=== PATIENT | male | born 1980 | race Caucasian/White ===

== ENCOUNTER → 2020-10-06 09:06 | Outpatient (BNVA) | payer OTHER, SELFPAY | PROVIDERS: PCP Internal Medicine; Visit Provider Orthopaedic Surgery | DX: S43.202A Unspecified subluxation of left sternoclavicular joint, initial encounter (principal); S46.812A Strain of other muscles, fascia and tendons at shoulder and upper arm level, left arm, initial encounter | CPT/HCPCS: 99202 ==

== ENCOUNTER 2020-12-30 18:58 | Emergency (ER) | payer OTHER, SELFPAY ==
[2020-12-30 19:02] VITALS: BP 150/93; PULSE 71; RESP 18; TEMP 36.8; O2SAT 96; BMI 34.2
--- NOTE | 2020-12-30 19:23 | ED.ANIMALBIT ---
HPI - Animal Bite General Chief Complaint: Animal Bite Stated Complaint: tick bite Time Seen by Provider: 12/30/20 19:02 Source: patient Mode of arrival: ambulatory Limitations: no limitations History of Present Illness MD complaint: other (tick bite) Onset (ago): day(s) (1) Animal: other (tick) Mechanism: bite Location: back Context: unprovoked Associated symptoms: other (couldn't remove full tick) Related Data Previous Rx's Medication Instructions Recorded lidocaine 5 % topical patch 1 patch TOPICAL DAILY PRN 15 Days 09/29/20 #15 ea naproxen 500 mg tablet 500 mg PO BID #60 tab 10/06/20 albuterol sulfate 90 mcg/actuation 2 puff INHALATION Q4H PRN #8.5 g 10/12/20 aerosol inhaler fluticasone furoate 200 2 inh INHALATION DAILY 30 Days #30 10/12/20 mcg/actuation blister powder for ea inhalation lisinopril 5 mg tablet 5 mg PO DAILY #30 tab 10/18/20 budesonide-formoterol HFA 160 2 puff INHALATION BID #10.2 g 11/10/20 mcg-4.5 mcg/actuation aerosol inhaler doxycycline hyclate 100 mg PO BID 10 Days #20 cap 12/30/20 Allergies Allergy/AdvReac Type Severity Reaction Status Date / Time Sulfa (Sulfonamide Allergy Severe ANGIOEDEMA, Verified 12/30/20 19:16 Antibiotics) Tongue [SULFA (SULFONAMIDE Swelling, ANTIBIOTICS)] swelling Review of Systems Review of Systems: Constitutional : No Fever, No Chills, Cardiovascular : No Chest Pain, No SOB Respiratory : No Dyspnea Gastrointestinal : No abdominal pain Musculoskeletal : No Joint Swelling Skin : No rash, pos insect bite Neuro : No Weakness, No Numbness Psych : No SI/HI PMFSH Past Medical History Medical History Adjustment disorder Anxiety and depression Asthma Erectile dysfunction Hypertension Nasal polyp Obesity (BMI 30-39.9) Obstructive sleep apnea Surgical History H/O umbilical hernia repair H/O vasectomy History of lumbar laminectomy History of orchiectomy Previous back surgery Social History Social History Alcohol intake: current Alcohol intake frequency: a few times a month Smoking Status: Never smoker Advance Directives: No Advance Directives Information Provided: Yes Current occupational status: employed 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 Oriented X3. No acute distress. Eyes: Pupils equal, round and reactive to light. ENT: Pharynx normal. Neck: Normal inspection. Neck supple. CVS: Pulses normal. Respiratory: No respiratory distress. Abdomen: Soft Back: tick head with red raised area not a bulls eye mid thoracic back no surrounding edema Skin: Skin warm and dry. Normal skin color. Normal skin turgor. Extremities: No lower extremity edema. No calf ttp Neuro: Oriented X 3. No motor deficit. No sensory deficit. Procedures Foreign Body Removal Time Out Performed: yes Site: other (back) Description of foreign body: insect Sedation/Analgesia: none Technique: removal with forceps Confirmed by:: direct visualization Complications: none Post-procedure exam: awake, alert MDM - Animal Bite MDM Narrative Medical decision making narrative: 40 yo male not diabetic here with tick bite on back, still need to remove head, red raised area no bulls eye possible local irritation vs start of cellulitis from picking at home - start on doxy x 10 days remove tick head Discharge Plan Discharge Clinical Impression: Tick bite Qualifiers: Encounter type: initial encounter Qualified Code(s): W57.XXXA - Bitten or stung by nonvenomous insect and other nonvenomous arthropods, initial encounter Patient Disposition: Home, Self-Care Instructions: Tick Bite (ED) Additional Instructions: return to ED for any worsening symptoms or concerns monitor for signs of redness, increased swelling, yellow drainage Prescriptions: New doxycycline hyclate 100 mg capsule 100 mg PO BID 10 Days Qty: 20 RF: 0 No Action lidocaine 5 % adhesive patch,medicated 1 patch topical DAILY PRN (Reason: pain (scale score 7-10)) 15 Days Qty: 15 RF: 5 fluticasone furoate 200 mcg/actuation blister with device 2 inh inhalation DAILY 30 Days Qty: 30 RF: 5 albuterol sulfate 90 mcg/actuation HFA aerosol inhaler 2 puff inhalation Q4H PRN (Reason: shortness of breath or wheezing) Qty: 8.5 RF: 0 lisinopril 5 mg tablet 5 mg PO DAILY Qty: 30 RF: 3 budesonide-formoterol [Symbicort] 160-4.5 mcg/actuation HFA aerosol inhaler 2 puff inhalation BID Qty: 10.2 RF: 11 naproxen [Naprosyn] 500 mg tablet 500 mg PO BID Qty: 60 RF: 2
== END 2020-12-30 19:57 | disposition home or self-care (01) ==
LOC: HO.ED 19:36
PROVIDERS: Emergency Provider Emergency Medicine; PCP Internal Medicine
DX: T63.481A Toxic effect of venom of other arthropod, accidental (unintentional), initial encounter (principal); M54.5 Low back pain; Y92.9 Unspecified place or not applicable; Z79.899 Other long term (current) drug therapy
CPT/HCPCS: 99284

== ENCOUNTER 2021-08-12 21:41 | Emergency (ER) | payer OTHER, SELFPAY ==
[2021-08-12 22:44] VITALS: BP 153/101; PULSE 94; RESP 18; TEMP 36.8; O2SAT 96; BMI 37.6
[2021-08-12] MEDS: diphenhydrAMINE HCL 50 MG/ML VIAL IVPUSH (23:26)
[2021-08-12] MEDS: Famotidine/PF 20 MG/2 ML VIAL IVPUSH (23:27)
--- NOTE | 2021-08-12 23:33 | PC.NURSE ---
IV established, pt medicated per MAR. Pt refusing Solumedrol, pt states Steroids make me crazy.
[2021-08-12 23:46] LABS: COVID-19 Test Positive (Negative)
--- NOTE | 2021-08-12 23:53 | ED_ITS ---
HPI - General Adult General Chief complaint: General Medical Stated complaint: allergic reaction Time Seen by Provider: 08/12/21 23:11 Source: patient Mode of arrival: ambulatory Limitations: no limitations History of Present Illness HPI narrative: 47-year-old male presents to ED for allergic reaction. Patient presents to the ED for swelling of lower lip and itchy sensation on body that began around 9:00pm. Patient known allergies of strawberries and sulfa and states to his knowledge he has not been exposed to any of these ingredients. Patient denies taking any high blood pressure medication. Patient denies any tongue swelling or shortness of breath. Patient states he speaking in clear sentences. Patient denies any drooling or change in voice. Patient states also he would like to be tested for COVID. Patient states he was exposed to a colleague who was positive for COVID. Patient denies any COVID symptoms. Patient denies any fever, chills, chest pain, shortness of breath, bodyaches, diarrhea, abdominal pain, or coughing. Related Data Previous Rx's Medication Instructions Recorded lidocaine 5 % topical patch 1 patch TOPICAL DAILY PRN 15 Days 09/29/20 #15 ea naproxen 500 mg tablet (Naprosyn) 500 mg PO BID #60 tab 10/06/20 doxycycline hyclate 100 mg capsule 100 mg PO BID 10 Days #20 cap 12/30/20 lisinopril 5 mg tablet 5 mg PO DAILY 90 Days #90 tab 01/10/21 fluticasone furoate 200 2 inh INHALATION DAILY 30 Days #30 01/13/21 mcg/actuation blister powder for ea inhalation fluticasone 250 mcg-salmeterol 50 1 inh INHALATION BID 90 Days #3 ea 01/17/21 mcg/dose blistr powdr for inhalation (Advair Diskus) albuterol sulfate 90 mcg/actuation 2 puff INHALATION Q4H PRN #8.5 g 06/25/21 aerosol inhaler diphenhydramine HCl 25 mg capsule 25 mg PO TID PRN 10 Days #30 cap 08/13/21 (Benadryl) epinephrine 0.3 mg/0.3 mL 0.3 mg (0.3 mL) IM Q10M PRN #2 ea 08/13/21 injection, auto-injector famotidine 20 mg tablet (Pepcid) 20 mg PO BID 10 Days #20 tab 08/13/21 prednisone 20 mg tablet 60 mg PO DAILY 5 Days #15 tab 08/13/21 Allergies Allergy/AdvReac Type Severity Reaction Status Date / Time Sulfa (Sulfonamide Allergy Severe ANGIOEDEMA, Verified 08/12/21 22:44 Antibiotics) Tongue [SULFA (SULFONAMIDE Swelling, ANTIBIOTICS)] swelling Review of Systems Review of Systems: Yes all other systems are reviewed and are negative Constitutional: Constitutional: Reports as per HPI and Reports no additional constitutional complaints Eyes: Eyes: Reports as per HPI and Reports no additional eye complaints ENT: Reports system reviewed and no additional complaints, except as documented and Reports as per HPI Comments: Swelling of lower lip Cardiovascular: Cardiovascular: Reports as per HPI and Reports no additional cardiovascular complaints Respiratory: Respiratory: Reports as per HPI and Reports no additional respiratory complaints Gastrointestinal: Gastrointestinal: Reports as per HPI and Reports no additional gastrointestinal complaints Genitourinary: Genitourinary: Reports no additional male genitourinary complaints and Reports as per HPI Musculoskeletal: Musculoskeletal: Reports no additional musculoskeletal complaints and Reports as per HPI Integumentary/Breasts: Skin/Breast: Reports system reviewed and no additional complaints, except as docu and Reports as per HPI Comments: Itchiness Neurologic: Reports system reviewed and no additional complaints, except as do cumented and Reports as per HPI Psychiatric: Psychiatric: Reports no additional psychiatric complaints and Reports as per HPI [facility] Past Medical History Medical History Adjustment disorder Anxiety and depression Asthma Erectile dysfunction Hypertension Nasal polyp Obesity (BMI 30-39.9) Obstructive sleep apnea Surgical History H/O umbilical hernia repair H/O vasectomy History of lumbar laminectomy History of orchiectomy Previous back surgery Social History Social History Alcohol intake: current Alcohol intake frequency: a few times a month Advance Directives: No Advance Directives Information Provided: No Current occupational status: employed 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 Physical Exam Vital Signs: Vital Signs: Last Vital Signs Temp 98.3 F 08/12/21 22:44 Pulse 92 08/13/21 00:41 Resp 18 08/13/21 00:41 BP 145/98 H 08/13/21 00:41 Pulse Ox 96 08/13/21 00:41 BMI result Body Mass Index 37.6 Const: General: cooperative, healthy appearing, comfortable, no acute distress, well developed, alert, awake and Physically active Orientation/consciousness: patient oriented x3 HENMT: Head: Yes normal to inspection, Yes No palpable skull fracture present, Yes normocephalic, Yes atraumatic, No abrasion, No Acrocyanosis present, No Gonzalez's sign, No contusion, No cranial bruits, No hematoma, No laceration, No occipital foramen tenderness, No palpable skull fracture, No raccoon eyes, No scalp lesion, No scalp tenderness, No Temporal artery tenderness present and No periorbital ecchymosis Mouth/tongue images: 1. Positive for lower lip swelling. Negative for tongue swelling. Upper lip normal. Uvula is midline. Negative for drooling. Uvula is not swollen Eyes: General: appearance normal, both eyes and all related structures Pupils: Equal, round and reactive pupils present Neck: Neck: Yes normal visual inspection, Yes full ROM, Yes no lym phadenopathy, Yes no meningeal signs, Yes trachea midline, Yes supple, No anterior neck swelling and No tender Chest: Chest palpation & inspection: normal inspection of the chest and normal palpation of entire chest wall Resp: Effort & Inspection: normal respiratory effort and able to speak in complete sentences Auscultation: clear to auscultation bilaterally Cardio: Jugular venous distension: no JVD Heart sounds: S1 normal heart sound present and S2 normal heart sound present GI: Inspection: Yes normal to inspection and No abdominal wall ecchymosis Palpation (GI): Soft to palpation, not firm, nontender, no guarding and not rigid : General: No CVA tenderness and Yes no CVA tenderness Back/Spine/Pelvis: Back: no CVA tenderness, No CVA tenderness and No back tenderness Skin: General skin exam: no rashes or lesions noted and elasticity normal Neuro: General: patient oriented x3, gait normal, tone normal, moves all extremities, Normal light touch and pain sensation, no meningeal signs, no focal motor deficits, CN's II-XI intact bilaterally and deep tendon reflexes 2+ bilat erally Cranial nerves: Yes CN's II-XII intact bilaterally, Yes Facial sen sation intact/muscles of mastication intact, Yes Intact sense of smell present, Yes Equal, round and reactive pupils present, Yes Bilaterally intact EOM present, Yes Nystagmus not present, Yes Normal facial strength present, Yes Midline tongue present and Yes Normal gag reflex present Extrem: General: Yes normal to inspection and Yes full ROM Psych: Appearance: grossly normal, well kempt and not disheveled Course Course Course Narrative: Presently no epinephrine indicating. Patient speaking in full sentences and lungs are clear. Only lower lip swollen. Will do Solu-Medrol, Benadryl, and Pepcid. Although patient does not have any COVID symptoms patient would like to be tested for COVID due to exposure to colleague was positive for COVID. Reevaluation(s) Reevaluation #1: Patient's lower lip swelling resolved. Patient's COVID test came back positive. Patient recommend self quarantine for 2 weeks. Patient will be discharged with steroids, Benadryl, Pepcid, EpiPen. Patient informed EpiPen should be used if he is having an anaphylactic reaction. Time: 01:28 Medical Decision Making [facility] Narrative Medical decision making narrative: Allergic reaction. COVID Lab Data Labs: Lab Results 08/12/21 Range/Units 23:32 COVID-19 ([facility]) Positive A (Negative) COVID-19 Clin Com See Note Discharge Plan Discharge Clinical Impression: Allergic reaction, COVID-19 Patient Disposition: Home, Self-Care Instructions: General Allergic Reaction (ED), COVID-19 (Coronavirus Disease 2019) (ED) Additional Instructions: Your positive for COVID. You will need to self quarantine for the next 14 days. You be discharged with allergy medication. Patient will be probably could rule. Return to the ED for any chest pain, shortness of breath, rash, swelling of lips, swelling of tongue, fever, chills, coughing up blood, leg swelling, calf pain, or any other concerning symptoms. Please follow-up with primary care provider. Prescriptions: New prednisone 20 mg tablet 60 mg PO DAILY 5 Days Qty: 15 RF: 0 diphenhydramine HCl [Benadryl] 25 mg capsule 25 mg PO TID PRN (Reason: allergic reaction) 10 Days Qty: 30 RF: 0 famotidine [Pepcid] 20 mg tablet 20 mg PO BID 10 Days Qty: 20 RF: 0 epinephrine 0.3 mg/0.3 mL auto-injector 0.3 mg IM Q10M PRN (Reason: anaphylaxis) Qty: 2 RF: 0 No Action lidocaine 5 % adhesive patch,medicated 1 patch topical DAILY PRN (Reason: pain (scale score 7-10)) 15 Days Qty: 15 RF: 5 lisinopril 5 mg tablet 5 mg PO DAILY 90 Days Qty: 90 RF: 2 fluticasone furoate 200 mcg/actuation blister with device 2 inh inhalation DAILY 30 Days Qty: 30 RF: 5 fluticasone propion-salmeterol [Advair Diskus] 250-50 mcg/dose blister with de vice 1 inh inhalation BID 90 Days Qty: 3 RF: 2 albuterol sulfate 90 mcg/actuation HFA aerosol inhaler 2 puff inhalation Q4H PRN (Reason: shortness of breath or wheezing) Qty: 8.5 RF: 0 doxycycline hyclate 100 mg capsule 100 mg PO BID 10 Days Qty: 20 RF: 0 naproxen [Naprosyn] 500 mg tablet 500 mg PO BID Qty: 60 RF: 2 Stand Alone Forms: Work/School Release Interventions: ED Discharge Assessment Last Done: 08/13/21 01:43 Discharge Date/Time: 08/13/21 01:44 Print Language: Serbian
[2021-08-13 00:41] VITALS: BP 145/98; PULSE 92; RESP 18; O2SAT 96
== END 2021-08-13 01:44 | disposition home or self-care (01) ==
PROVIDERS: Physician Assistant; Emergency Provider Student in an Organized Health Care Education/Training Program; PCP Internal Medicine
DX: U07.1 COVID-19 (principal); T78.40XA Allergy, unspecified, initial encounter; L29.9 Pruritus, unspecified; X58.XXXA Exposure to other specified factors, initial encounter
CPT/HCPCS: 36415; 87635; 96374; 96375; 99284; J1200

== ENCOUNTER 2022-01-07 08:38 | Outpatient (REF) | payer OTHER, SELFPAY ==
--- NOTE | ~2022-01-07 | XR_ITS ---
EXAMINATION: LEFT SHOULDER AND CLAVICLE X-RAY CLINICAL INFORMATION: Pain COMPARISON: Previous x-ray March 2020 TECHNIQUE: One view of the left clavicle and 3 views of the left shoulder FINDINGS: Bone alignment is normal. No fracture or dislocation is seen. The joint spaces are normal in soft tissues are normal. There is curvature of the upper thoracic spine to the left. XR/XR clavicle LT IMPRESSION: Normal left shoulder. Thoracic scoliosis.
--- NOTE | ~2022-01-07 | XR_ITS ---
EXAMINATION: LEFT SHOULDER AND CLAVICLE X-RAY CLINICAL INFORMATION: Pain COMPARISON: Previous x-ray March 2020 TECHNIQUE: One view of the left clavicle and 3 views of the left shoulder FINDINGS: Bone alignment is normal. No fracture or dislocation is seen. The joint spaces are normal in soft tissues are normal. There is curvature of the upper thoracic spine to the left. XR/XR shoulder LT min 2V IMPRESSION: Normal left shoulder. Thoracic scoliosis.
[2022-01-07 09:11] LABS: MANUAL DIFF FLAG NO
[2022-01-07 09:43] LABS: Basophils Absolute Auto 0.1 X10*3/uL (0.0-0.2); Eosinophils Absolute Auto 0.5 X10*3/uL (0.0-0.4); Eosinophils Percent Auto 7.9 % (0-4); Hematocrit 48.9 % (42.0-52.0); Imm Gran Abs Auto 0.02 X10*3/uL (0.00-0.03); Imm Gran Pct Auto 0.3 % (0.0-0.4); Lymphocytes Absolute Auto 2.1 X10*3/uL (1.2-4.9); Lymphocytes Percent Auto 35.2 % (20-40); Mean Corpuscular HGB Conc 34.8 g/dl (31.0-36.0); Mean Corpuscular Hemoglobin 31.3 pg (27.0-33.0); Mean Corpuscular Volume 89.9 fL (80.0-98.0); Monocytes Absolute Auto 0.5 X10*3/uL (0.1-1.2); Monocytes Percent Auto 8.6 % (2-11); Neutrophils Absolute Auto 2.8 x10*3/uL (2.0-8.3); Platelet Count 245 X10*3/uL (160-400); Red Blood Count 5.44 X10*6/uL (4.60-5.80); Red Cell Distribution Width 11.8 % (11.0-16.0)
[2022-01-07 10:05] LABS: Alanine Aminotransferase 72 U/L (0-40); Albumin Level 4.3 g/dL (3.5-5.0); Alkaline Phosphatase 67 U/L (39-117); Anion Gap 13 (12-20); Aspartate Amino Transferase 48 U/L (5-37); Bilirubin Total 1.1 mg/dL (0.0-1.0); Blood Urea Nitrogen 15 mg/dL (9-16); Calcium 9.6 mg/dL (8.4-10.2); Carbon Dioxide 24 mmol/L (22-29); Chloride 107 mmol/L (96-108); Cholesterol 230 mg/dL; Estimated Glomerular Filt Rate > 60; Glucose Fasting 113 mg/dL (60-99); HDL Cholesterol 31 mg/dL; LDL Cholesterol Calculated 170 mg/dl; Potassium 4.6 mmol/L (3.3-5.1); Sodium 139 mmol/L (135-145); Total Protein 7.4 g/dL (6.5-8.0); Triglycerides 147 mg/dL
[2022-01-07 10:17] LABS: TSH reflex Free T4 1.43 uIU/mL (0.32-4.0)
[2022-01-07 10:31] LABS: Folate 15.5 ng/mL (> or = 4.0); Vitamin B12 519 pg/mL (200-900)
[2022-01-10 15:51] LABS: Vitamin D 25-OH, D2 <4 ng/mL; Vitamin D 25-OH, D3 16 ng/mL; Vitamin D 25-OH, Total 16 ng/mL (30-100)
== END 2022-01-07 08:39 | disposition home or self-care (01) ==
LOC: HO.LAB 08:38
PROVIDERS: PCP Internal Medicine; Visit Provider Nurse Practitioner Acute Care
DX: M25.512 Pain in left shoulder (principal); E66.9 Obesity, unspecified; G47.33 Obstructive sleep apnea (adult) (pediatric); I10 Essential (primary) hypertension; U07.1 COVID-19; G89.29 Other chronic pain
CPT/HCPCS: 36415; 73000; 73030; 80053; 80061; 82306; 82607; 82746; 84443; 85025

== ENCOUNTER 2022-12-27 11:14 | Outpatient (REF) | payer OTHER, SELFPAY ==
--- NOTE | ~2022-12-27 | US_ITS ---
EXAMINATION: US VENOUS ULTRASOUND WITH DOPPLER LOWER EXTREMITY, RIGHT CLINICAL INFORMATION: Right leg swelling COMPARISON: None available. TECHNIQUE: Ultrasound of the deep veins is performed from the hip to the calf with compression sonography and color and pulse Doppler assessment. Spectral analysis with color-flow imaging is performed. FINDINGS: There is normal venous compression and respiratory variation and augmented flow. The visualized common femoral vein, superficial femoral vein, profunda femoral vein, popliteal vein, and the trifurcation region shows no evidence of deep venous thrombosis. A small Saxena's cyst with septations noted measuring 2.6 x 2.0 x 2.1 cm . There is a small lymph node right groin measuring 2.0 x 0.6 x 1.6 cm. If the patient's symptoms persist, followup ultrasound in 5 days 7 days might be of value to exclude proximal propagation from a non-visualized calf vein. US/US venous duplex LE RT IMPRESSION: No DVT demonstrated in the right lower extremity.
== END 2022-12-27 11:15 | disposition home or self-care (01) ==
LOC: HO.US 11:14
PROVIDERS: PCP Internal Medicine; Visit Provider Internal Medicine
DX: M79.89 Other specified soft tissue disorders (principal)
CPT/HCPCS: 93971

== ENCOUNTER 2023-01-09 09:56 | Outpatient (REF) | payer OTHER, SELFPAY ==
--- NOTE | ~2023-01-09 | US_ITS ---
EXAMINATION: US ABDOMEN LIMITED CLINICAL INFORMATION: Other specified abnormal findings of blood chemistry. COMPARISON: None available. TECHNIQUE: Real-time imaging of the right upper quadrant abdominal viscera. FINDINGS: PANCREAS: Not well visualized due to bowel gas LIVER: Liver echotexture is increased probably representing fatty infiltration. The liver is normal in size. The liver contour is normal. No focal hepatic lesion. There is no intrahepatic biliary duct dilatation seen. GALLBLADDER: Normal. The gallbladder is physiologically distended without evidence of stones, sludge, polyps, wall thickening or pericholecystic fluid. COMMON BILE DUCT: Normal in caliber measuring 0.5 cm in diameter. RIGHT KIDNEY: Small cyst in the lateral midpole measuring 6 mm. No imaging follow-up recommended No hydronephrosis or renal calculi. The kidney measures 12.7 cm in maximum dimension. FREE FLUID: None. US/US abdomen limited IMPRESSION: Echogenic liver probably representing fatty infiltration. Limited visualization of the pancreas.
[2023-01-09 10:34] LABS: MANUAL DIFF FLAG NO
[2023-01-09 11:03] LABS: Basophils Absolute Auto 0.1 X10*3/uL (0.0-0.2); Eosinophils Absolute Auto 0.6 X10*3/uL (0.0-0.4); Eosinophils Percent Auto 9.3 % (0-4); Hematocrit 47.6 % (42.0-52.0); Hemoglobin 16.6 g/dl (14.0-18.0); Imm Gran Abs Auto 0.01 X10*3/uL (0.00-0.03); Imm Gran Pct Auto 0.2 % (0.0-0.4); Lymphocytes Absolute Auto 2.3 X10*3/uL (1.2-4.9); Lymphocytes Percent Auto 38.3 % (20-40); Mean Corpuscular HGB Conc 34.9 g/dl (31.0-36.0); Mean Corpuscular Hemoglobin 31.1 pg (27.0-33.0); Mean Corpuscular Volume 89.3 fL (80.0-98.0); Mean Platelet Volume 9.7 fL (9.4-12.4); Monocytes Absolute Auto 0.5 X10*3/uL (0.1-1.2); Monocytes Percent Auto 7.8 % (2-11); Neutrophils Absolute Auto 2.6 x10*3/uL (2.0-8.3); Neutrophils Percent Auto 43.4 % (45-73); Platelet Count 239 X10*3/uL (160-400); Red Blood Count 5.33 X10*6/uL (4.60-5.80); Red Cell Distribution Width 11.7 % (11.0-16.0); White Blood Count 5.9 X10*3/uL (4.8-10.8)
[2023-01-09 11:14] LABS: Estimated Average Glucose 131 mg/dL; Hemoglobin A1c % 6.2 %
[2023-01-09 12:10] LABS: Alanine Aminotransferase 71 U/L (0-40); Albumin Level 4.2 g/dL (3.5-5.0); Alkaline Phosphatase 64 U/L (39-117); Anion Gap 11 (12-20); Aspartate Amino Transferase 47 U/L (5-37); Bilirubin Total 1.3 mg/dL (0.0-1.0); Blood Urea Nitrogen 15 mg/dL (9-16); Calcium 9.5 mg/dL (8.4-10.2); Carbon Dioxide 26 mmol/L (22-29); Chloride 108 mmol/L (96-108); Cholesterol 242 mg/dL; Estimated Glomerular Filt Rate > 60; Glucose Random 100 mg/dL (60-115); HDL Cholesterol 30 mg/dL; LDL Cholesterol Calculated 184 mg/dl; Potassium 4.1 mmol/L (3.3-5.1); Sodium 141 mmol/L (135-145); Total Protein 7.1 g/dL (6.5-8.0); Triglycerides 141 mg/dL
[2023-01-09 12:42] LABS: Folate 13.9 ng/mL (> or = 4.0); Free T4 (Free Thyroxine) 1.05 ng/dL (0.71-1.85); Thyroid Stimulating Hormone 1.24 uIU/mL (0.32-4.0); Vitamin B12 644 pg/mL (200-900)
[2023-01-10 09:19] LABS: HBc Num1 0.07 S/CO (0.00-0.79); HBsAGNum1 0.38 S/CO (0.00-0.99); Hepatitis B Core Antibody Nonreactive (Nonreactive); Hepatitis B Surface Antigen Negative (Negative); ~HepC Num1 0.16 S/CO (0.00-0.79); ~Hepatitis B Surface Antibody REACTIVE (Nonreactive); ~Hepatitis C Antibody Nonreactive (Nonreactive)
== END 2023-01-09 09:57 | disposition home or self-care (01) ==
LOC: HO.US 09:56
PROVIDERS: PCP Internal Medicine; Visit Provider Internal Medicine
DX: R79.89 Other specified abnormal findings of blood chemistry (principal); E78.00 Pure hypercholesterolemia, unspecified; R73.02 Impaired glucose tolerance (oral)
CPT/HCPCS: 36415; 76705; 80053; 80061; 82607; 82746; 83036; 84439; 84443; 85025; 86704; 86706; 86803; 87340

== ENCOUNTER 2023-06-13 14:08 | Outpatient (AMB) | payer OTHER, SELFPAY ==
--- NOTE | 2023-06-13 14:29 | MHC.OFFVIS ---
Intake Intake Visit Reasons: Sperm Count Intake Note: NEW Patient presents today to established treatment for Sperm Count: Meds- None Allergies to Antibiotic- Sulfonamide Blood Thinner- None Editorial Writer Required: No Accompanied by: Self / Same As Patient Allergies Sulfa (Sulfonamide Antibiotics) [SULFA (SULFONAMIDE ANTIBIOTICS)] Allergy (Severe, Verified 06/13/23 14:29) ANGIOEDEMA, Tongue Swelling, swelling HPI Sperm Count HPI Details Adam is a 43-year-old male who presents today to the office for an evaluation of sperm count. 06/13/23 ? The patient had a vasectomy about seven years ago but is not sure about the date or hospital. He states that his had an IUD placed about five years ago, which she is about to get removed. He has a concern regarding his vasectomy, and he wants to make sure that no sperm is his semen. He has no family history of prostate cancer. I reviewed the semen sample under the microscope. Dr. Pantoja also visualized the semen sample today in the office. There was minimal protein visualized and no sperm was visualized. Plan No sperm visualized under the microscope. The patient will follow up P.R.N. [facility] Medical History Nasal polyp Hypertension Obstructive sleep apnea Anxiety and depression Adjustment disorder Obesity (BMI 30-39.9) Erectile dysfunction Asthma Surgical History H/O vasectomy History of orchiectomy H/O umbilical hernia repair History of lumbar laminectomy Previous back surgery Family History Paternal Grandfather Myocardial infarct Social History Housing: House Alcohol intake: current Alcohol intake frequency: a few times a month Patient Tobacco Use Status: Never used Tobacco e-Cigarette/Vaping Use: Never Used service: No Current occupational status: employed 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 Cognitive needs: No Hearing needs: No Vision needs: No Review of Systems Const All systems reviewed & are unremarkable except as noted in HPI and below Reports no additional complaints Eyes Reports no additional complaints ENT Reports no additional complaints Card Reports no additional complaints Resp Reports no additional complaints GI Reports no additional complaints Musc Reports no additional complaints Skin/Breast Reports system reviewed and no additional complaints, except as documented Neuro Reports no additional complaints Psych Reports no additional complaints Endo Reports no additional complaints Stephen/Lymph Reports no additional complaints Aller/Immun Reports no additional complaints Physical Exam Const General: healthy appearing, no acute distress and well developed Orientation/consciousness: patient oriented x3 HEENT Head: Yes normocephalic and Yes atraumatic Eyes Conjunctivae: conjunctivae normal Neck Neck: Yes normal visual inspection Chest Chest palpation & inspection: normal inspection of the chest Resp Effort & Inspection: normal respiratory effort Cardio Rate: regular rate GI Inspection: Yes normal to inspection Skin General skin exam: no rashes or lesions noted Neuro General: patient oriented x3 Extrem General: Yes no pedal edema Psych Appearance: grossly normal Affect: normal affect Results AMB Urinalysis, Automated UA Leukoctes 0 Vaughn/uL Last Edit by Pam Ponce [facility] on 06/13/23 15:12 UA Nitrite Negative Last Edit by Pam Ponce [facility] on 06/13/23 15:12 UA Urobilinogen 0.2 mg/dL Last Edit by Pam Ponce [facility] on 06/13/23 15:12 UA Protein 0 mg/dL Last Edit by Pam Ponce [facility] on 06/13/23 15:12 UA pH 6.0 Last Edit by Pam Ponce [facility] on 06/13/23 15:12 UA Blood 10 Silvano/uL Last Edit by Pam Ponce [facility] on 06/13/23 15:12 UA Specific [place] 1.020 Last Edit by aPm Ponce [facility] on 06/13/23 15:12 UA Ketone Negative Last Edit by Pam Ponce [facility] on 06/13/23 15:12 UA Bilirubin 0 mg/dL Last Edit by Pam Ponce [facility] on 06/13/23 15:12 UA Glucose 500 mg/dL Last Edit by Pam Ponce [facility] on 06/13/23 15:12 2+ Pam Ponce 06/13/23 15:12 Results Reviewed Results Reviewed: Laboratory Last Values Urine pH (Auto) 6.0 06/13/23 15:10 Specific [place] (Auto) 1.020 06/13/23 15:10 Urine Protein (Auto) 0 mg/dL 06/13/23 15:10 Glucose (UA)(Auto) 500 mg/dL 06/13/23 15:10 Urine Ketones (Auto) Negative 06/13/23 15:10 Urine Blood (Auto) 10 Silvano/uL 06/13/23 15:10 Urine Nitrite (Auto) Negative 06/13/23 15:10 Urine Bilirubin (Auto) 0 mg/dL 06/13/23 15:10 Urine Urobilinogen (Auto) 0.2 mg/dL 06/13/23 15:10 Leukocyte Esterase (Auto) 0 Vaughn/uL 06/13/23 15:10 Assessment & Plan Assessment & Plan (1) Vasectomy status: Code(s): Z98.52 - Vasectomy status (2) Encounter for semen analysis: Code(s): Z31.41 - Encounter for fertility testing Plan No sperm visualized under the microscope. The patient will follow up P.R.N. Orders: Orders AMB Urinalysis Automated 06/13/23 Z13.9 - Encounter for screening, unspecified Patient Instructions: The patient had an opportunity to ask questions regarding treatment plan. All questions were answered. Imaging, Laboratory studies and physical exam results were discussed and reviewed in detail. No major barriers to understanding were identified. The patient expressed understanding and agreement with the above treatment plan. The patient is aware they should contact our office by phone for worsening of their current condition or the appearance of new symptoms. Compliance is encouraged with any medications and followup testing that is ordered. It is a privilege to be allowed the opportunity to participate in the urologic care of your patient. If you have any questions or concerns regarding treatment for the above conditions please do not hesitate to contact me. The office telephone contact is [phone]. This note is constructed in part using voice recognition software. While every effort has been made to ensure accuracy quality assurance assessor errors may have been included. Yours sincerely, Cassie Dwyer MD Coding Level of Care Code New Pt Level 3 (78734) Diagnoses Vasectomy status Z98.52 Encounter for semen analysis Z31.41
== END 2023-06-13 15:13 | disposition home or self-care (01) ==
PROVIDERS: PCP Internal Medicine; Visit Provider Urology
DX: Z98.52 Vasectomy status (principal); Z31.41 Encounter for fertility testing
CPT/HCPCS: 99203

== ENCOUNTER → 2023-06-13 14:08 | Outpatient (BNVA) | payer OTHER, SELFPAY | PROVIDERS: PCP Internal Medicine; Visit Provider Urology | DX: Z31.41 Encounter for fertility testing (principal); Z98.52 Vasectomy status | CPT/HCPCS: 81003 ==

== ENCOUNTER 2024-02-03 10:45 | Outpatient (AMB) | payer OTHER, SELFPAY ==
[2024-02-03 10:47] VITALS: BP 142/98; PULSE 104; O2SAT 96; BMI 38.8
--- NOTE | 2024-02-03 10:47 | A.OFFPC_ITS ---
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 Required: No Allergies Sulfa (Sulfonamide Antibiotics) [SULFA (SULFONAMIDE ANTIBIOTICS)] Allergy (Severe, Verified 02/03/24 10:53) ANGIOEDEMA, Tongue Swelling, swelling Medication List - Last Reconciled 02/03/24 by Anitra Quezada MD albuterol sulfate 90 mcg/actuation 2 puffs inhalation Q4H PRN blood pressure monitor (Blood Pressure Kit) As directed fluticasone propion-salmeterol 250-50 mcg/dose (Advair Diskus) 1 inh inhalation BID 90 days lisinopril 5 mg PO DAILY Tobacco use date assessed: 02/03/24 Dental Screening Dental Screen Date: 02/03/24 Did you have a dental visit in the last 12 months?: No Did you have a dental problem in the last 6 months where you did not have access to dental care?: No Was dental information given to patient?: Patient has dentist HPI Annual Exam HPI Details 43-year-old obese male with hypercholest erolemia impaired glucose tolerance hypertension obstructive sleep apnea coming in for physical exam last seen in 12/19/2022. Review of the notes patient did see Urology for sperm counts with a history of vasectomy no sperm count visualized under the microscope. admits ran out of BP med. [facility] Medical History (Updated 02/03/24 @ 11:33 by Anitra Quezada MD) Nasal polyp Hypertension Obstructive sleep apnea Anxiety and depression Adjustment disorder Obesity (BMI 30-39.9) Erectile dysfunction Asthma Surgical History H/O vasectomy History of orchiectomy H/O umbilical hernia repair History of lumbar laminectomy Previous back surgery Family History Paternal Grandfather Myocardial infarct Social History (Updated 02/03/24 @ 11:32 by Anitra Quezada MD) Housing: House Alcohol intake: current Alcohol intake frequency: a few times a month [facility] has not drank 1.5 years Patient Tobacco Use Status: Never used Tobacco Years Smoked: occ marijuana- edibles 1-2 a week e-Cigarette/Vaping Use: Never Used service: No Current occupational status: employed 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 1. Little interest or pleasure in doing things: not at all 2. Feeling down, depressed, or hopeless: not at all 3. Trouble falling or staying asleep, or sleeping too much: not at all 4. Feeling tired or having little energy: not at all 5. Poor appetite or overeating: not at all 6. Feeling bad about yourself - or that you are a failure or have let yourself or your family down: not at all 7. Trouble concentrating on things, such as reading the newspaper or watching television: not at all 8. Moving or speaking so slowly that other people could have noticed. Or the opposite - being so fidgety or restless that you have been moving around a lot more than usual: not at all 9. Thoughts that you would be better off or of hurting yourself in some way: not at all Total score: 0 Depression Screening Interpretation: Negative Depression Screening Done: Yes Source: Developed by Drs. Dre Patricio, Deann Ha, Aramis Abreu and colleagues, with an educational ronal from [employer] Thrive Questionnaire Date Thrive assessed: 02/03/24 I am a: Patient What is your living situation today?: I have a steady place to live Within the past 12 months, did the food you bought not last and you didn't have the money to get more?: Never true Within the past 12 months, did you worry whether your food would run out before you got money to buy more?: Never true Do you have trouble getting transportation to medical appointments?: No Do you have trouble paying your heating and electricity bill?: No Do you have trouble taking care of your child, family member or friend?: No Do you have trouble with day-to-day activities such as bathing, preparing meals, shopping, managing finances, etc.?: No Are you currently unemployed and looking for a job?: No Are you interested in more education?: No Please select the resources that you would like help with: None Currently or been in a relationship where the following occur: no concerns reported THRIVE Score: 0 AUDIT C Alcohol Use Questionnaire (AUDIT-C) 1. How often do you have a drink containing alcohol?: Monthly or less 2. How many drinks containing alcohol do you have on a typical day when you are drinking?: 1 or 2 3. How often do you have six or more drinks on one occasion?: Never Total Score: 1 Score Reviewed/Action Taken: Yes (reviewed no action needed at this time) SUNG-7 AMB Questionnaire SUNG-7 Date SUNG - 7 assessed: 02/03/24 Feeling nervous, anxious, or on edge: 0 = Not at all Not being able to stop or control worryin = Not at all Worrying too much about different things: 0 = Not at all Trouble relaxin = Not at all Being so restless that it is hard to sit still: 0 = Not at all Becoming easily annoyed or irritable: 0 = Not at all Feeling afraid as if something awful might happen: 0 = Not at all Total SUNG-7 score (0-4 normal; 5-9 mild; 10-14 moderate; 15-21 severe): 0 Source: Developed by Drs. Dre Patricio, Deann Ha, Aramis Abreu and colleagues, with an educational ronal from [employer]. SUNG-7 Assessment Billing SUNG-7 Assessment Tool: SUNG-7 Assessment 73706 Review of Systems Const Denies poor appetite and Denies weakness Eyes Denies no additional complaints ENT Reports Normal hearing present, Denies dizziness, Denies nasal congestion, Denies tinnitus and Denies sore throat Card Denies chest pain, Denies syncope, Denies rapid heart rate and Denies dyspnea Resp Denies cough and Denies dyspnea GI Denies change in stool character, Reports constipation, Denies diarrhea, Denies nausea and Denies vomiting Denies dysuria and Denies urinary frequency Neuro Reports Normal hearing present, Denies confusion, Denies dizziness, Denies syncope and Denies weakness Psych Denies confusion Physical exam (Primary Care) Vital Signs: Last Vital Signs Pulse 104 H 02/03/24 10:47 BP 142/98 H 02/03/24 10:47 Pulse Ox 96 02/03/24 10:47 Oxygen Delivery Method Room Air 02/03/24 10:47 BMI result Body Mass Index 38.8 Tobacco/Smoking Status: Tobacco use Status Tobacco use date assessed 02/03/24 02/03/24 10:57 Patient Tobacco Use Status Never used Tobacco 02/03/24 11:31 e-Cigarette/Vaping Use Never Used 02/03/24 11:31 PHQ-9: PHQ-9 Score PHQ-9: Total score 0 02/03/24 11:26 Depression Screening Interpretation: Negative Thrive Assessment: Date of Thrive Assessment Date Thrive assessed 02/03/24 02/03/24 10:57 Currently or been in a relationship where the following occur: no concerns reported Const General: No confusion Orientation/consciousness: No confusion HENMT Head: Yes normocephalic Ears: external ears normal and TM's normal bilaterally Face and sinus: Yes normal facial exam Mouth: moist mucous membranes Throat: Yes tonsils normal Eyes Conjunctivae: conjunctivae normal Pupils: Equal, round and reactive pupils present and Pupil accommodation reflex normal Direct Ophthalmoscopy: normal light reflex Neck Neck: No lymphadenopathy Thyroid: Thyroid normal Chest Chest palpation & inspection: normal inspection of the chest Resp Effort & Inspection: normal respiratory effort and no audible wheezes Auscultation: clear to auscultation bilaterally, no crackles, no wheezes and lung sounds not diminished Cardio Rate: regular rate Rhythm: regular rhythm Peripheral pulses: radial pulses present and dorsalis pedis present GI Other: visual exam negative Palpation (GI): no masses Auscultation: normal bowel sounds and normoactive bowel sounds Rectal Exam - Male: Yes deferred Male General Exam: Yes normal external exam Skin General skin exam: no rashes or lesions noted Rashes: no rashes Neuro General: No confusion Cranial nerves: Yes Equal, round and reactive pupils present and Yes Normal hearing present Cognition (Neuro): normal cognition Gait exam (Neuro): Normal gait present Motor exam (neuro): 5/5 motor strength present throughout Deep tendon reflexes (DTR's): Right brachioradialis reflex intensity grade: 2+, Left brachioradialis reflex intensity grade: 2+, Right patellar reflex intensity grade: 2+ and Left patellar reflex intensity grade: 2+ Extrem General: No edema Immunizations tetanus-diphtheria toxoids-Td 2 Lf unit-2 Lf unit/0.5 mL IM suspension Performing Provider: Anitra Quezada MD Performing Location: [facility] Administered by: VONDA Tsang on 02/03/24 11:48 Dose Route Admin Location Dispensed Lot Number Expiration Date NDC Office Support Clerk 0.5 mL IM Left Deltoid 0.5 mL [id number] 10/11/24 [address]-5 [employer] VIS Given Date VIS Provided VIS Publication Date 02/03/24 Single Vaccine 21 Eligibility Eligibility Date Funding Source Not VFC Eligible 02/03/24 State funds Assessment and Plan Assessment & Plan (1) Annual physical exam: Code(s): Z00.00 - Encounter for general adult medical examination without abnormal findings Plan: Patient is advised to eat healthy, keep well hydrated, keep active and have adequate sleep. (2) Hypercholesterolemia: Code(s): E78.00 - Pure hypercholesterolemia, unspecified Plan: Avoid fried foods, chicken skin, eggs, butter margarine, pastries and meat. Be it pork or beef they have a lot of cholesterol LDL goal of less than 130 and triglyceride of less than 150 (3) Impaired glucose tolerance: Code(s): R73.02 - Impaired glucose tolerance (oral) Plan: Decrease the amount of carbohydrate intake, pasta, bread, rice and potatoes are all sugar and that is aside from all the sweet stuff, remember that fruits are good but they are Sweet also. Will retest (4) LFT elevation: Code(s): R79.89 - Other specified abnormal findings of blood chemistry Plan: Low-fat diet and exercise (5) Obesity (BMI 30-39.9): Code(s): E66.9 - Obesity, unspecified Plan: Diet and exercise (6) Obstructive sleep apnea: Comment: 04/14/2019 Code(s): G47.33 - Obstructive sleep apnea (adult) (pediatric) Plan: continue to use the CPAP > 4 hours a night and benefitd from this (7) Hypertension: Code(s): I10 - Essential (primary) hypertension Qualifiers: Hypertension type: essential hypertension Qualified Code(s): I10 - Essential (primary) hypertension Plan: Continue with blood pressure medication. Decrease salt intake and exercise presently on lisinopril 5 mg once a day (8) Asthma: Code(s): J45.909 - Unspecified asthma, uncomplicated (9) Hearing deficit: Code(s): H91.90 - Unspecified hearing loss, unspecified ear Orders: Orders Complete Blood Count Auto Diff Today I10 - Essential (primary) hypertension Free T4 (Free Thyroxine) Today I10 - Essential (primary) hypertension Lipid Panel Today E78.00 - Pure hypercholesterolemia, unspecified, I10 - Essential (primary) hypertension Vitamin B12 and Folate Today I10 - Essential (primary) hypertension Comprehensive Met. Panel Today I10 - Essential (primary) hypertension Thyroid Stimulating Hormone Today I10 - Essential (primary) hypertension Hemoglobin A1c Today I10 - Essential (primary) hypertension Td State Immunization Today Z23 - Encounter for immunization Referrals Speech and Hearing Referral H91.90 - Unspecified hearing loss, unspecified ear Medications: New tetanus-diphtheria toxoids-Td 0.5 mL IM ONCE 0.5 mL 0RF Z23 - Encounter for immunization Changed From fluticasone propion-salmeterol 250-50 mcg/dose (Advair Diskus) 1 inh inhalation BID 90 days 3 ea 2RF I10 - Essential (primary) hypertension To Advair Diskus 250-50 mcg/dose (fluticasone propion-salmeterol) 1 inh inhalation BID 60 ea 12RF 30 days NS I10 - Essential (primary) hypertension Refilled lisinopril 5 mg PO DAILY 90 tabs 0RF I10 - Essential (primary) hypertension albuterol sulfate 90 mcg/actuation 2 puffs inhalation Q4H PRN 8.5 grams 0RF shortness of breath or wheezing I10 - Essential (primary) hypertension Coding Level of Care Code Est Pt Prev Care 40-64y(98084) Diagnoses Annual physical exam Z00.00 Hypercholesterolemia E78.00 Impaired glucose tolerance R73.02 LFT elevation R79.89 Obesity (BMI 30-39.9) E66.9 Obstructive sleep apnea G47.33 Essential hypertension I10 Hypertension type: essential hypertension Asthma J45.909 Hearing deficit H91.90 Additional Codes SUNG-7 Assessment Billing - SUNG-7 Assessment Tool: SUNG-7 Assessment 53511 ([id number]) PHQ-9 - 35433 - PHQ-9 Billing: ([id number])
== END 2024-02-03 11:55 | disposition home or self-care (01) ==
PROVIDERS: PCP Internal Medicine; Visit Provider Internal Medicine
DX: Z00.00 Encounter for general adult medical examination without abnormal findings (principal); E78.00 Pure hypercholesterolemia, unspecified; R73.02 Impaired glucose tolerance (oral); Z23 Encounter for immunization; R79.89 Other specified abnormal findings of blood chemistry; E66.9 Obesity, unspecified; G47.33 Obstructive sleep apnea (adult) (pediatric); I10 Essential (primary) hypertension; J45.909 Unspecified asthma, uncomplicated; H91.90 Unspecified hearing loss, unspecified ear
CPT/HCPCS: 90471; 90714; 99396

== ENCOUNTER 2024-09-27 15:56 | Outpatient (AMB) | payer OTHER, SELFPAY ==
--- NOTE | 2024-09-27 15:59 | A.OFFPC_ITS ---
Vital Signs 09/27/24 16:01 Height 5 ft 11 in Weight 267 lb BMI 37.2 BP 134/86 Blood Pressure Location Lt brachial Position Sitting Pulse 83 Pulse Source Pulse Oximeter Pulse Oximetry (%) 96 Oxygen Delivery Method Room Air Intake Visit Reasons: Hypertension Intake Note: Patient here for a follow up HTN Inside Finisher Required: No Accompanied by: Self / Same As Patient Allergies Sulfa (Sulfonamide Antibiotics) [SULFA (SULFONAMIDE ANTIBIOTICS)] Allergy (Severe, Verified 09/27/24 16:04) ANGIOEDEMA, Tongue Swelling, swelling lisinopril Allergy (Intermediate, Unverified 09/27/24 16:35) angioedema Tobacco use date assessed: 09/27/24 Dental Screening Dental Screen Date: 09/27/24 Did you have a dental visit in the last 12 months?: No Did you have a dental problem in the last 6 months where you did not have access to dental care?: No Was dental information given to patient?: Patient has dentist HPI Hypertension HPI Details occ causing prolbems of swelling of lip and tongue , is on lisinopril 44-year-old obese male noted 11 lb weight loss with a history of obstructive sleep apnea hypertension impaired glucose tolerance hypercholesterolemia and asthma last seen in January patient has not had blood work done. Patient has not been able to get the Advair and is asking for placement. As for the blood pressure did mention about episodes of angioedema where swelling of lip and tongue and was advised that we can not use that anymore. Will discontinue lisinopril. Patient does have/need refill on the albuterol. [facility] Medical History (Updated 02/03/24 @ 11:33 by Anitra Quezada MD) Nasal polyp Hypertension Obstructive sleep apnea Anxiety and depression Adjustment disorder Obesity (BMI 30-39.9) Erectile dysfunction Asthma Surgical History H/O vasectomy History of orchiectomy H/O umbilical hernia repair History of lumbar laminectomy Previous back surgery Family History Paternal Grandfather Myocardial infarct Social History Housing: House Alcohol intake: current Alcohol intake frequency: a few times a month Comment: states (01/2024 ) has not drank 1.5 years Patient Tobacco Use Status: Never used Tobacco Years Smoked: occ marijuana- edibles 1-2 a week e-Cigarette/Vaping Use: Never Used Second Hand Smoke Exposure: No service: No Current occupational status: employed 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 1. Little interest or pleasure in doing things: not at all 2. Feeling down, depressed, or hopeless: not at all 3. Trouble falling or staying asleep, or sleeping too much: not at all 4. Feeling tired or having little energy: not at all 5. Poor appetite or overeating: not at all 6. Feeling bad about yourself - or that you are a failure or have let yourself or your family down: not at all 7. Trouble concentrating on things, such as reading the newspaper or watching television: not at all 8. Moving or speaking so slowly that other people could have noticed. Or the opposite - being so fidgety or restless that you have been moving around a lot more than usual: not at all 9. Thoughts that you would be better off or of hurting yourself in some way: not at all Total score: 0 Depression Screening Interpretation: Negative Depression Screening Done: Yes Source: Developed by Drs. Dre Patricio, Deann Ha, Aramis Abreu and colleagues, with an educational ronal from [employer]. Thrive Questionnaire Date Thrive assessed: 09/27/24 I am a: Patient What is your living situation today?: I have a steady place to live Within the past 12 months, did the food you bought not last and you didn't have the money to get more?: Never true Within the past 12 months, did you worry whether your food would run out before you got money to buy more?: Never true Do you have trouble paying for medicines?: No Do you have trouble getting transportation to medical appointments?: No Do you have trouble paying your heating and electricity bill?: No Do you have trouble taking care of your child, family member or friend?: No Do you have trouble with day-to-day activities such as bathing, preparing meals, shopping, managing finances, etc.?: No Are you currently unemployed and looking for a job?: No Are you interested in more education?: No Please select the resources that you would like help with: None Currently or been in a relationship where the following occur: No concerns reported THRIVE Score: 0 AUDIT C Alcohol Use Questionnaire (AUDIT-C) 1. How often do you have a drink containing alcohol?: Never Total Score: 0 SUNG-7 AMB Questionnaire SUNG-7 Date SUNG - 7 assessed: 09/27/24 Feeling nervous, anxious, or on edge: 0 = Not at all Not being able to stop or control worryin = Not at all Worrying too much about different things: 0 = Not at all Trouble relaxin = Not at all Being so restless that it is hard to sit still: 0 = Not at all Becoming easily annoyed or irritable: 0 = Not at all Feeling afraid as if something awful might happen: 0 = Not at all Total SUNG-7 score (0-4 normal; 5-9 mild; 10-14 moderate; 15-21 severe): 0 Source: Developed by Drs. Dre Patricio, Deann Ha, Aramis Abreu and colleagues, with an educational ronal from [employer]. Physical exam (Primary Care) Vital Signs: Last Vital Signs Pulse 83 09/27/24 16:01 BP 134/86 09/27/24 16:01 Pulse Ox 96 09/27/24 16:01 Oxygen Delivery Method Room Air 09/27/24 16:01 BMI result Body Mass Index 37.2 Tobacco/Smoking Status: Tobacco use Status Tobacco use date assessed 09/27/24 09/27/24 16:08 Patient Tobacco Use Status Never used Tobacco 09/27/24 16:00 e-Cigarette/Vaping Use Never Used 09/27/24 16:00 PHQ-9: PHQ-9 Score PHQ-9: Total score 0 09/27/24 16:09 Depression Screening Interpretation: Negative Thrive Assessment: Date of Thrive Assessment Date Thrive assessed 09/27/24 09/27/24 16:08 Currently or been in a relationship where the following occur: No concerns reported Const General: alert; No acute distress Eyes Conjunctivae: conjunctivae normal Resp Auscultation: clear to auscultation bilaterally Cardio Rate: regular rate Rhythm: regular rhythm GI Inspection: Yes normal to inspection Extrem General: Yes normal to inspection and No edema Coding Level of Care Code Est Pt Level 4 (47589) Diagnoses Obesity (BMI 30-39.9) E66.9 Obstructive sleep apnea G47.33 Essential hypertension I10 Hypertension type: essential hypertension Hypercholesterolemia E78.00 Impaired glucose tolerance R73.02 Asthma J45.909 Assessment & Plan Assessment & Plan (1) Obesity (BMI 30-39.9): Code(s): E66.9 - Obesity, unspecified Category: Medical Plan: Diet and exercise continue (2) Obstructive sleep apnea: Comment: 04/14/2019 Code(s): G47.33 - Obstructive sleep apnea (adult) (pediatric) Category: Medical Plan: Discussed about CPAP treatment for obstructive sleep apnea (3) Hypertension: Code(s): I10 - Essential (primary) hypertension Category: Medical Qualifiers: Hypertension type: essential hypertension Qualified Code(s): I10 - Essential (primary) hypertension Plan: Continue with blood pressure medication. Decrease salt intake and exercise because of the angioedema discontinue lisinopril and will start on hydrochlorothiazide. Discussed about side effects of frequency as well as hypokalemia or leg cramps. (4) Hypercholesterolemia: Code(s): E78.00 - Pure hypercholesterolemia, unspecified Category: Medical Plan: Avoid fried foods, chicken skin, eggs, butter margarine, pastries and meat. Be it pork or beef they have a lot of cholesterol advised to get blood work done (5) Impaired glucose tolerance: Code(s): R73.02 - Impaired glucose tolerance (oral) Category: Medical Plan: Decrease the amount of carbohydrate intake, pasta, bread, rice and potatoes are all sugar and that is aside from all the sweet stuff, remember that fruits are good but they are Sweet also. Advised to get blood work done (6) Asthma: Code(s): J45.909 - Unspecified asthma, uncomplicated Category: Medical Plan: Albuterol inhaler sent and change Advair to [facility] for better coverage. Rinse mouth after using them. Medications: New hydrochlorothiazide 12.5 mg PO QAM 30 tabs 4RF I10 - Essential (primary) hypertension fluticasone propion-salmeterol 250-50 mcg/dose ([facility] Inhub) 1 inh inhalation BID 60 ea 5RF J45.909 - Unspecified asthma, uncomplicated Refilled 2 albuterol sulfate 90 mcg/actuation 2 puffs inhalation Q4H PRN 8.5 grams 0RF shortness of breath or wheezing I10 - Essential (primary) hypertension Discontinued Advair Diskus 250-50 mcg/dose (fluticasone propion-salmeterol) Discontinued Reason: Doctor's Order 1 inh inhalation BID 30 days 60 ea 12RF NS I10 - Essential (primary) hypertension lisinopril Discontinued Reason: Doctor's Order 5 mg PO DAILY 90 tabs 0RF I10 - Essential (primary) hypertension
[2024-09-27 16:01] VITALS: BP 134/86; PULSE 83; O2SAT 96; BMI 37.2
== END 2024-09-27 16:55 | disposition home or self-care (01) ==
PROVIDERS: PCP Internal Medicine; Visit Provider Internal Medicine
DX: I10 Essential (primary) hypertension (principal); E66.9 Obesity, unspecified; G47.33 Obstructive sleep apnea (adult) (pediatric); Z68.37 Body mass index [BMI] 37.0-37.9, adult; E78.00 Pure hypercholesterolemia, unspecified; R73.02 Impaired glucose tolerance (oral); J45.909 Unspecified asthma, uncomplicated; Z23 Encounter for immunization

== ENCOUNTER → 2024-09-27 15:56 | Outpatient (BNVA) | payer OTHER, SELFPAY | PROVIDERS: PCP Internal Medicine; Visit Provider Internal Medicine | DX: Z23 Encounter for immunization (principal); E66.9 Obesity, unspecified; G47.33 Obstructive sleep apnea (adult) (pediatric); E78.00 Pure hypercholesterolemia, unspecified; I10 Essential (primary) hypertension; R73.02 Impaired glucose tolerance (oral) | CPT/HCPCS: 90471; 90656; 99212 ==

== ENCOUNTER 2024-12-30 10:31 | Outpatient (AMB) | payer OTHER, SELFPAY ==
[2024-12-30 10:37] VITALS: BP 162/92; PULSE 84; O2SAT 97; BMI 37.4
--- NOTE | 2024-12-30 10:37 | MHC.PC.OV ---
Vital Signs 12/30/24 10:37 Height 5 ft 11 in Weight 268 lb BMI 37.4 BP 162/92 H Blood Pressure Location Lt brachial Position Sitting Pulse 84 Pulse Source Pulse Oximeter Pulse Oximetry (%) 97 Oxygen Delivery Method Room Air Intake Visit Reasons: IGT, Cholesterol Allergies Sulfa (Sulfonamide Antibiotics) [SULFA (SULFONAMIDE ANTIBIOTICS)] Allergy (Severe, Verified 12/30/24 10:37) ANGIOEDEMA, Tongue Swelling, swelling lisinopril Allergy (Intermediate, Verified 12/30/24 10:37) angioedema hydrochlorothiazide Adverse Reaction (Intermediate, Unverified 12/30/24 11:15) skin reaction Medication List - Last Reconciled 12/30/24 by Anitra Quezada MD albuterol sulfate 90 mcg/actuation 2 puffs inhalation Q4H PRN amlodipine 2.5 mg PO DAILY blood pressure monitor (Blood Pressure Kit) As directed fluticasone propion-salmeterol 250-50 mcg/dose (Wixela Inhub) 1 inh inhalation BID Tobacco use date assessed: 09/27/24 Dental Screening Dental Screen Date: 09/27/24 HPI IGT, Cholesterol HPI Details 44-year-old obese male with hypertension obstructive sleep apnea impaired glucose tolerance asthma allergic rhinitis last seen in September. Patient was advised to get blood work done but in here having a problem. Patient was placed on hydrochlorothiazide for blood pressure but not feel well and so has dropped it a month ago. Meanwhile has been congested with allergies and has been taking Claritin but without any relief and this time was taking Claritin D. Discussed my concerns about the decongestant as the blood pressure is higher. [facility] Medical History (Updated 12/30/24 @ 11:22 by Anitra Quezada MD) Nasal polyp Hypertension Obstructive sleep apnea Anxiety and depression Adjustment disorder Obesity (BMI 30-39.9) Erectile dysfunction Asthma Surgical History H/O vasectomy History of orchiectomy H/O umbilical hernia repair History of lumbar laminectomy Previous back surgery Family History Paternal Grandfather Myocardial infarct Social History Housing: House Alcohol intake: current Alcohol intake frequency: a few times a month Comment: [facility] (01/2024 ) has not drank 1.5 years Patient Tobacco Use Status: Never used Tobacco Tobacco use type: Cigarette Years Smoked: occ marijuana- edibles 1-2 a week e-Cigarette/Vaping Use: Never Used Second Hand Smoke Exposure: No service: No Current occupational status: employed 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 1. Little interest or pleasure in doing things: not at all 2. Feeling down, depressed, or hopeless: not at all 3. Trouble falling or staying asleep, or sleeping too much: not at all 4. Feeling tired or having little energy: not at all 5. Poor appetite or overeating: more than half the days 6. Feeling bad about yourself - or that you are a failure or have let yourself or your family down: not at all 7. Trouble concentrating on things, such as reading the newspaper or watching television: not at all 8. Moving or speaking so slowly that other people could have noticed. Or the opposite - being so fidgety or restless that you have been moving around a lot more than usual: not at all 9. Thoughts that you would be better off or of hurting yourself in some way: not at all Total score: 2 Depression Screening Interpretation: Positive Depression Screening Done: Yes Source: Developed by Drs. Dre Patricio, Deann Ha, Aramis Abreu and colleagues, with an educational ronal from [employer]. Thrive Questionnaire Date Thrive assessed: 09/27/24 I am a: Patient What is your living situation today?: I have a steady place to live Within the past 12 months, did the food you bought not last and you didn't have the money to get more?: Never true Within the past 12 months, did you worry whether your food would run out before you got money to buy more?: Never true Do you have trouble paying for medicines?: No Do you have trouble getting transportation to medical appointments?: No Do you have trouble paying your heating and electricity bill?: No Do you have trouble taking care of your child, family member or friend?: No Do you have trouble with day-to-day activities such as bathing, preparing meals, shopping, managing finances, etc.?: No Are you currently unemployed and looking for a job?: No Are you interested in more education?: No Please select the resources that you would like help with: None Currently or been in a relationship where the following occur: No concerns reported THRIVE Score: 0 AUDIT C Alcohol Use Questionnaire (AUDIT-C) 1. How often do you have a drink containing alcohol?: Never Total Score: 0 SUNG-7 AMB Questionnaire SUNG-7 Date SUNG - 7 assessed: 09/27/24 Feeling nervous, anxious, or on edge: 0 = Not at all Not being able to stop or control worryin = Not at all Worrying too much about different things: 0 = Not at all Trouble relaxin = Not at all Being so restless that it is hard to sit still: 0 = Not at all Becoming easily annoyed or irritable: 0 = Not at all Feeling afraid as if something awful might happen: 0 = Not at all Total SUNG-7 score (0-4 normal; 5-9 mild; 10-14 moderate; 15-21 severe): 0 Source: Developed by Drs. Dre Patricio, Deann Ha, Aramis Abreu and colleagues, with an educational ronal from [employer]. Physical exam (Primary Care) Vital Signs: Last Vital Signs Pulse 84 12/30/24 10:37 BP 162/92 H 12/30/24 10:37 Pulse Ox 97 12/30/24 10:37 Oxygen Delivery Method Room Air 12/30/24 10:37 BMI result Body Mass Index 37.4 Tobacco/Smoking Status: Tobacco use Status Tobacco use date assessed 09/27/24 12/30/24 10:38 Patient Tobacco Use Status Never used Tobacco 12/30/24 10:38 Tobacco use type Cigarette 12/30/24 10:38 e-Cigarette/Vaping Use Never Used 12/30/24 10:38 PHQ-9: PHQ-9 Score PHQ-9: Total score 2 12/30/24 10:38 Depression Screening Interpretation: Positive Thrive Assessment: Date of Thrive Assessment Date Thrive assessed 09/27/24 12/30/24 10:38 Currently or been in a relationship where the following occur: No concerns reported Const General: alert; No acute distress Eyes Conjunctivae: conjunctivae normal Resp Auscultation: clear to auscultation bilaterally Cardio Rate: regular rate Rhythm: regular rhythm GI Inspection: Yes normal to inspection Extrem General: Yes normal to inspection and No edema Coding Level of Care Code Est Pt Level 4 (83956) Complex EM visit Add On G2211 Diagnoses Obesity (BMI 30-39.9) E66.9 Obstructive sleep apnea G47.33 Essential hypertension I10 Hypertension type: essential hypertension Hypercholesterolemia E78.00 Asthma J45.909 Colon cancer screening Z12.11 Seasonal allergic rhinitis, unspecified trigger J30.2 Allergic rhinitis trigger: unspecified Allergic rhinitis seasonality: seasonal Assessment & Plan Assessment & Plan (1) Obesity (BMI 30-39.9): Code(s): E66.9 - Obesity, unspecified Category: Medical Plan: Diet and exercise (2) Obstructive sleep apnea: Comment: 04/14/2019 Code(s): G47.33 - Obstructive sleep apnea (adult) (pediatric) Category: Medical Plan: Discussed about obstructive sleep apnea and CPAP treatment (3) Hypertension: Code(s): I10 - Essential (primary) hypertension Category: Medical Qualifiers: Hypertension type: essential hypertension Qualified Code(s): I10 - Essential (primary) hypertension Plan: Discussion about blood pressure control. Discussed with the patient the importance of getting blood pressure under control. Patient was advised to not take decongestants as this will increase the blood pressure. Hydrochlorothiazide not being able to take due to side effects and patient had angioedema from lisinopril. Will put in for amlodipine 2.5 mg once a day to start. (4) Hypercholesterolemia: Code(s): E78.00 - Pure hypercholesterolemia, unspecified Category: Medical Plan: Avoid fried foods, chicken skin, eggs, butter margarine, pastries and meat. Be it pork or beef they have a lot of cholesterol LDL goal of less than 130 and triglyceride of less than 150. Patient is reminded about blood work (5) Asthma: Code(s): J45.909 - Unspecified asthma, uncomplicated Category: Medical Plan: on wixela and albuterol (6) Colon cancer screening: Code(s): Z12.11 - Encounter for screening for malignant neoplasm of colon Category: Medical Plan: Patient is reminded about colon cancer screening (7) Allergic rhinitis: Code(s): J30.9 - Allergic rhinitis, unspecified Category: Medical Qualifiers: Allergic rhinitis trigger: unspecified Allergic rhinitis seasonality: seasonal Qualified Code(s): J30.2 - Other seasonal allergic rhinitis Plan: Patient is prescribed Flonase and continue with the Claritin but avoid decongestants. Orders: Referrals Gastroenterology Referral Z12.11 - Encounter for screening for malignant neoplasm of colon Medications: New amlodipine 2.5 mg PO DAILY 30 tabs 3RF I10 - Essential (primary) hypertension fluticasone propionate 50 mcg/actuation (Flonase Allergy Relief) administer into each nostril 2 sprays intranasal DAILY 16 grams 10RF J30.9 - Allergic rhinitis, unspecified Refilled fluticasone propion-salmeterol 250-50 mcg/dose (Wixela Inhub) 1 inh inhalation BID 60 ea 5RF J45.909 - Unspecified asthma, uncomplicated albuterol sulfate 90 mcg/actuation 2 puffs inhalation Q4H PRN 8.5 grams 0RF shortness of breath or wheezing I10 - Essential (primary) hypertension
== END 2024-12-30 11:21 | disposition home or self-care (01) ==
LOC: HO.HMCH 10:32
PROVIDERS: PCP Internal Medicine; Visit Provider Internal Medicine
DX: I10 Essential (primary) hypertension (principal); E66.9 Obesity, unspecified; Z68.32 Body mass index [BMI] 32.0-32.9, adult; G47.33 Obstructive sleep apnea (adult) (pediatric); E78.00 Pure hypercholesterolemia, unspecified; J45.909 Unspecified asthma, uncomplicated; Z12.11 Encounter for screening for malignant neoplasm of colon; J30.2 Other seasonal allergic rhinitis

== ENCOUNTER → 2024-12-30 10:31 | Outpatient (BNVA) | payer OTHER, SELFPAY | PROVIDERS: PCP Internal Medicine; Visit Provider Internal Medicine | DX: G47.33 Obstructive sleep apnea (adult) (pediatric) (principal); I10 Essential (primary) hypertension; E78.00 Pure hypercholesterolemia, unspecified; J45.909 Unspecified asthma, uncomplicated; E66.9 Obesity, unspecified; Z99.89 Dependence on other enabling machines and devices; Z68.37 Body mass index [BMI] 37.0-37.9, adult | CPT/HCPCS: 96127; 99212 ==